=== PATIENT | male | born 1985 | race Caucasian/White ===

== ENCOUNTER 2016-10-27 14:22 | Emergency (ER) | payer OTHER ==
[~2016-10-27] VITALS: Ht 188 cm; Wt 113.6 kg
[~2016-10-27 14:22] MED LIST: IBUP200C PO; IMI100 PO; LITH300T2 PO; OXYC1TAB24 PO
[2016-10-27 14:27] VITALS: BP 142/91; PULSE 112; RESP 18; O2SAT 95
--- NOTE | 2016-10-27 15:13 | ED.REPORT ---
HPI-Dyspnea / Wheezing Date of Service Oct 27, 2016 ED Provider: Chente Gaines MD Pt is a 31 y/o male w/ a hx of polycythemia vera, current every day smoker (10 cigs/day), presenting to the ED c/o worsening SOB and cough onset 1 week ago. The pt was seen for this at [facility] ED 3 days ago at which time a chest x-ray and flu swab were negative. Tessalon Perles were prescribed with no relief. He was also prescribed promethazine with codeine but his insurance wouldn't allow it to be filled. He c/o associated nasal congestion, sore throat , pleuritic pain, fever. He denies productive cough, chills, N/V/D. He has no diagnosed history of asthma or COPD. Nursing Notes Stated Complaint: COUGH/CHEST Chief Complaint: Respiratory Complaints Nursing Notes Reviewed: Yes Allergies: Coded Allergies: chlorhexidine (Verified Allergy, Unknown, Rash,Itching,, 08/08/15) Scheduled PRN Guaifenesin/Codeine Phosphate (Cheratussin AC Syrup) 118 Ml Liquid 5 ML PO BID PRN PRN For Cough Ibuprofen (Ibuprofen) 200 Mg Capsule 800 MG PO QID PRN PRN For Pain General Time Seen by MD: 14:32 Chief Complaint Shortness of breath Hx Obtained From: Patient Arrived By: Walk-in Sudden in Onset?: No Onset Occurred: 1 week ago Symptom Duration: Since onset Past Medical History Past Medical History Polycythemia vera Chronic back pain - on Oxycodone Past Surgical History None Smoking History Current Every Day Smoker Social History Alcohol Use: "Social" Drug Use: Denies drug use Other Social History: Local resident Ambulatory Status Independent Review of Systems Constitutional: Reports: Fever, Denies: Chills Ears / Nose / Throat: Reports: Nasal congestion, Sore throat Respiratory: Reports: Non-productive cough, Pleuritic pain, Shortness of breath , Denies: Prod cough, green, Prod cough, yellow Complete sys rev & neg: except as marked. GI: Denies: Diarrhea, Nausea, Vomiting Physical Exam Initial Vital Signs Vital Signs (First) Date Time Temp Pulse Resp B/P Pulse Ox O2 Delivery O2 Flow Rate FiO2 10/27/16 14:27 36.5 112 18 142/91 95 Room Air Initial VS: Reviewed, Vital signs abnormal Head / Eyes: Atraumatic, Normocephalic, PERRL Abdomen / GI: Soft, Non-tender Extremities: Vascular intact, Neuro intact, No swelling, No tenderness Skin: Warm, Dry, No cyanosis Neurologic: Alert, Oriented, Nonfocal Psychiatric: Mood/affect normal, Behavior normal, Normal thought content General/Constitutional: Awake, Alert, No acute distress, Cooperative, Not toxic appearing Neck: Atraumatic, Supple, No meningismus, Full range of motion Respiratory / Chest: Atraumatic, Breath sounds NL, Breath sounds = bilat, No respiratory distress, No rales, No rhonchi, No wheezing, No retractions, No stridor, No chest tenderness, No chest wall deformity, No crepitus Cardiovascular: Heart rate NL, Regular rhythm, Heart sounds NL, No gallop, No murmurs, No rubs, Cap refill not delayed, Peripheral circulation NL Interpretation & Diagnostics Lab Results Interpretation Test 10/27/16 15:30 Hold Purple Top Tube Received (Received) Hold Blue Top Tube Received (Received) Hold Red Top Tube Received (Received) Hold [place] Top Tube Received (Received) X-Ray Chest Interpretation View: Portable, AP & lat Interpretation / Wet Read by: Wet read ED physician NL X-Ray Chest Findings: No infiltrate, No acute disease Re-Eval/Medical Decision Med Decision/Clinical Course Pt is a 31 y/o male w/ a hx of polycythemia vera, current every day smoker (10 cigs/day), presenting to the ED c/o worsening SOB and cough onset 1 week ago. The pt was seen for this at [facility] ED 3 days ago at which time a chest x-ray and flu swab were negative. Tessalon Perles were prescribed with no relief. Here in the emergency department he is tachycardic with a heart rate of 112 though otherwise afebrile with stable vital signs. Examination most consistent with bronchitis in the setting of recent upper respiratory infection and ongoing smoking. The patient is very low risk for pulmonary embolism and while he is somewhat tachycardic this setting exertion and his underlying respiratory complaints and do not feel that this is claims representative of a more serious underlying cardiopulmonary process. CXR: Obtained, reviewed and interpreted by myself shows no evidence of acute infiltrates, effusions or pneumothorax. Cardiac and mediastinal silhouette normal. No bony or soft tissue abnormalities. Here in the emergency department the patient was treated with a DuoNeb and reported moderate symptom improvement. He was provided with an albuterol inhaler/spacer which he will use as needed. I do not feel that he requires steroids at this time. I discussed that the most beneficial thing that he can do for his symptoms is to stop smoking. He was prescribed codeine cough medicine cough syrup for use as needed at night. Follow-up and return precautions were reviewed in detail and the patient was discharged in good condition. Re-Evaluation/Progress : Time of Eval: 16:04 Patient Status: Condition improved, Moderate relief Re-Evaluation/Progress Note: Pt rechecked. Informed pt of plan for treatment. Pt understands and agrees with plan for treatment. F/U and RTER warnings given. All questions addressed. Counseled Regarding: Diagnosis, Need for follow-up, When/why to return to ED Discharge & Departure Impression: Primary Impression: Bronchitis Additional Impressions: Cough Tobacco abuse Tachycardia Disposition: Home Discharge Condition All VS Reviewed: Yes Condition: Patient Instructions: Acute Bronchitis (ED), How to Stop Smoking (GEN) Additional Instructions: Thank you for seeking care at emergency room. It is difficult for us to make definitive diagnoses in the ED but we believe that you are experiencing bronchitis. Our primary goal today in the ED was to evaluate you for any life-threatening conditions. Your evaluation was reassuring. Your x-ray was normal. You will be discharged with a prescription for codeine guaifenesin. Take this at night. Use the Albuterol inhaler with spacer, 2 puffs every 4 hours as needed. You need to stop smoking. You should follow-up with your primary doctor in the next week. You should return to the ED immediately if you develop fevers, vomiting, worsening cough, shortness of breath, chest pain, lightheadedness, weakness or any other concerning signs or symptoms. Thank you for letting us partake in your care today. Narcotic Pain Medicine You have been prescribed a narcotic for pain relief. These drugs are usually combined with acetaminophen (Tylenol#3, Percocet, Darvocet, Anexsia, Vicodin) or aspirin (Empirin#3, Percodan, Synalogs-DC) for increased effect. Narcotics act on the central nervous system to reduce pain; they also impair mental alertness and physical abilities. We advise you not to drink alcohol, drive a car, or operate dangerous equipment when you are taking theses drugs. You can lessen stomach irritation from your medicine by taking it with meals or a full glass of water. Common side effects of narcotics are: Nausea and vomiting, heartburn, consitpation, dizziness, sleepiness, and mood changes. If you have bothersome side effects or symptoms of an allergic reaction (itching, hives, rash), stop taking your medicine and call your doctor or the emergency room right away. Please keep your narcotic medicine well out of the reach of children. Referrals: [facility] Scribe Attestation Portions of this note were transcribed by Garo Ramírez. I, Dr. Gaines personally performed the history, physical exam and medical decision-making; I reviewed and confirmed the accuracy of the information in the transcribed note. Signed by Reena Santillan, 10/27/16 - 1545 Chente Gaines MD Oct 27, 2016 15:13 GARO RAMÍREZ Oct 27, 2016 15:18
[2016-10-27] MEDS ORDERED: Albuterol-Ipratropium 3 mL Inhalation Solution NEB ONE (15:25)
[2016-10-27] MEDS ORDERED: Albuterol-Ipratropium 3 mL Inhalation Solution NEB SCH (15:25)
[2016-10-27] MEDS ORDERED: 0.9% Sodium Chloride 1,000 ML IV ONE (15:25)
[2016-10-27 15:54] VITALS: PULSE 91; RESP 18; O2SAT 92
[2016-10-27] MEDS ORDERED: GUAI118L13 PO (16:06)
--- NOTE | 2016-10-27 16:07 | DRSVH ---
PROCEDURE: X-RAY CHEST, TWO VIEWS ([id number]) INDICATIONS: cough TECHNIQUE: 2 views of the chest were acquired. COMPARISON: [facility], CR, CHEST 2VW, 03/13/2012, 1:05. FINDINGS: Surgical changes and devices: None. Lungs and pleura: No pleural effusions or pneumothorax. Lungs are clear. Mediastinum: Mediastinal contours are normal. Heart size is normal. Bones and chest wall: No suspicious bony abnormalities. Soft tissues appear unremarkable. IMPRESSION: No acute cardiopulmonary disease. Dictated by: Alexey Castaneda [facility] Interpreted: Monet Wen MD on 10/27/2016 at 16:06 Transcribed by: KEVIN on 10/27/2016 at 16:06 Approved by: Monet Wen MD, PhD on 10/27/2016 at 16:45
[2016-10-27] MEDS ORDERED: Albuterol HFA 60 Puff 8 Gm Inhaler INHALATION PRN (16:10)
[2016-10-27] MEDS ORDERED: Albuterol HFA 60 Puff 8 Gm Inhaler INHALATION SCH ×2 (16:30→16:34)
[2016-10-27 17:05] VITALS: BP 127/81; PULSE 103; RESP 15; O2SAT 95
[2016-11-07] MEDS ORDERED: OXYC1TAB24 PO (14:22)
[2016-11-07] MEDS ORDERED: ALBU8.5H2 INHALATION (14:24)
== END 2016-10-27 16:50 | disposition home or self-care (01) ==
LOC: SED 14:22
DX: J40 Bronchitis, not specified as acute or chronic (principal); R05 Cough; R00.0 Tachycardia, unspecified; F17.200 Nicotine dependence, unspecified, uncomplicated; D45 Polycythemia vera; Z88.8 Allergy status to other drugs, medicaments and biological substances
CPT/HCPCS: 71020; 94664; 96360; 99284; J7030; J7620

== ENCOUNTER → 2017-03-24 | Day surgery (SDC) | payer OTHER ==
[~2017-03-24] MED LIST changes: +IBUP-1827 PO; -IBUP200C PO; -IMI100 PO; +LEVO500T16 PO; -LITH300T2 PO
--- NOTE | 2017-03-30 18:49 | NUR ---
Order clarification: Call placed to Dr. Quesada and new orders received. Ok'd to use labs from 03/21/17 for Saturdays phlebotomy treatment.
--- NOTE | 2017-03-31 18:02 | NUR ---
No Show: Pt was a no show for scheduled appointment on 03/30/17. Call placed to pt who stated that he thought that his appointment was for Sunday03/31/17. Appointment rescheduled for 5pm on 03/31/17 and pt was a No Show for that appointment as well. Addendum: 03/31/17 at 1806 by MANUEL CARRASQUILLO RN Will fax MD office to inform about pt No Show for appointments.
== END | disposition home or self-care (01) ==
LOC: MOCO 07:56
PROVIDERS: ATTEND Internal Medicine Hematology & Oncology
DX: D75.1 Secondary polycythemia (principal)